=== PATIENT | female | born 1965 | race Caucasian/White ===

== ENCOUNTER → 2017-07-26 | Outpatient (CLI) | payer BC ==
[2017-07-26 10:50] LABS: BASO % 0.8 %; BASO ABS # 0.04 K/uL (0-0.2); COMPLETE YES; EOS % 2.9 %; HEMATOCRIT 40.1 % (37-47); IG% 0.2 %; LYMPH % 26.3 %; LYMPH ABS # 1.34 K/uL (1.2-3.4); MEAN CELL VOLUME 89.1 fL (80-100); MEAN CORPUSCULAR HEMOGLOBIN 29.6 pg (25-34); MEAN CORPUSCULAR HGB CONC 33.2 g/dl (32-36); MEAN PLATELET VOLUME 10.4 fL (7.4-10.4); MONO % 8.6 %; NEUT % 61.2 %; PLATELET COUNT 280 K/uL (130-400)
[2017-07-26 11:30] LABS: CHOLESTEROL/HDL RATIO 3.3; THYROID STIMULATING HORMONE 1.66 uIu/ml (0.300-4.500)
== END | disposition home or self-care (01) ==
LOC: C.LABBC 09:04
PROVIDERS: ATTEND Family Medicine
DX: Z00.00 Encounter for general adult medical examination without abnormal findings (principal); Z11.4 Encounter for screening for human immunodeficiency virus [HIV]; R53.82 Chronic fatigue, unspecified; E55.9 Vitamin D deficiency, unspecified